=== PATIENT | female | born 1970 | race Caucasian/White ===

== ENCOUNTER 2021-07-01 18:11 | Emergency (ER) | payer OTHER ==
[~2021-07-01] VITALS: Ht 162.6 cm; Wt 70.3 kg
[2021-07-01 18:11] VITALS: BP 164/93
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
[2021-07-01] MEDS ORDERED: MORPHINE SULFATE ONE (18:14)
[2021-07-01] MEDS ORDERED: MORPHINE SULFATE IV STA (18:15)
[2021-07-01 19:10] LABS: BASOPHIL % 0.1 % (0.0-0.2); EOSINOPHIL % 0.2 % (0.0-5.0); LYMPHOCYTES # 1.43 10^3/uL1 (1.0-4.8); LYMPHOCYTES % 10.9 % (24.0-44.0); MEAN CORP HGB 28.8 pg (26-34); MONOCYTES % 7.4 % (5.0-12.0); NEUTROPHIL # 10.6 10^3/uL (1.8-7.7); NEUTROPHILS % 81.2 % (41.0-85.0); RED CELL DISTRIBUTION WIDTH 11.8 % (11.5-14.5)
--- NOTE | 2021-07-01 19:20 | NUR ---
[address] RO[address] RASH TO RIGHT SHOULDER CLEANED AND DRESSED.
[2021-07-01] MEDS ORDERED: ADACEL VIAL IM ONE ×2 (19:26→19:30)
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
--- NOTE | 2021-07-01 19:32 | PCM.EKG ---
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
[2021-07-01 19:35] LABS: ALANINE AMINOTRANSFERASE(ML) 47 U/L (12-78); ALKALINE PHOSPHATASE 48 U/L (50-136); ASPARTATE AMINO TRANSFERASE 33 U/L (0-35); CALCIUM 7.9 mg/dL (8.4-10.5); CARBON DIOXIDE 21.7 mmol/L (20.0-32); GLUCOSE 104 mg/dL (70-110)
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
[2021-07-01] MEDS ORDERED: TRIPLE ANTIBIOTIC OINTMENT TP ONE (21:39)
== END 2021-07-01 21:30 | disposition home or self-care (01) ==
LOC: ER 18:11
DX: S00.03XA Contusion of scalp, initial encounter (principal); S80.812A Abrasion, left lower leg, initial encounter; V49.9XXA Car occupant (driver) (passenger) injured in unspecified traffic accident, initial encounter; Y93.89 Activity, other specified; Y92.488 Other paved roadways as the place of occurrence of the external cause; Y99.8 Other external cause status
CPT/HCPCS: 36415; 71045; 80053; 82077; 82550; 82553; 84484; 85025; 85610; 85730; 90471; 90715; 93005; 96374; 99285; 73030-LT